=== PATIENT | male | born 1960 | race Caucasian/White ===

== ENCOUNTER 2020-12-25 10:10 | Inpatient (IN) | payer OTHER, SELFPAY ==
[2020-12-25] VITALS (56 sets, daily range): BP systolic 129–174; BP diastolic 88–120; PULSE 76–130; RESP 12–25; O2SAT 90–95
--- NOTE | 2020-12-25 10:12 | XACV_ITS ---
Ht: 180 cm Wt: 96 kg BSA: 2.22 m2 Gender: Male : 1960 Any Known Allergies: No known allergies Exam Priority: Routine Procedure(s): Procedure Description: Diagnostic procedure Procedure Description: PCI procedure Procedure Description: Drug Eluting Coronary Stent Procedure Description: PTCA Procedure Description: Miscellaneous Procedure Description: ACT Procedure Description: Coronary Angiography Diagnostic Cath Status: Urgent Diagnostic Findings * LM has 0% stenosis. * Mid Left Anterior Descending Coronary Artery: Severe 90% stenosis, FREDA: 3 flow. * Proximal Circumflex Coronary Artery: Severe 80% stenosis, FREDA: 0 flow. * Mid Circumflex Coronary Artery: Severe 90% stenosis, FREDA: 3 flow. * mRCA: Moderate 50% stenosis, FREDA: 3 flow. * dRCA to RPAV: Moderate 50% stenosis, FREDA: 3 flow. * Coronary angiography shows right dominance. PCI Status: Urgent PCI Indication: STEMI - Immediate PCI for STEMI Interventional Findings * Mid Left Anterior Descending Coronary Artery: 90% stenosis treated with AB MINI TREK 2.00X12 RX BALLOON, RUFINA Lopez LIZANDRO 3.0X26 APRIL, and RUFINA ANGELES EUPHORA RX 3.20H95GB BALLOON. 0% residual stenosis, FREDA: 3 flow. * Proximal Circumflex Coronary Artery: 80% stenosis treated with MDT R LIZANDRO 3.0X15 APRIL. 0% residual stenosis, FREDA: 3 flow. * Mid Circumflex Coronary Artery: 90% stenosis treated with AB TREK 2.50X12 RX BALLOON and MDT R LIZANDRO 3.0X12 APRIL. 0% residual stenosis, FREDA: 3 flow. Conclusions 1. There is severe coronary artery disease with three vessel disease. 2. Mid Left Anterior Descending Coronary Artery was treated with two Balloon and Drug Eluting Stent. 3. Proximal Circumflex Coronary Artery was treated with Drug Eluting Stent. 4. Mid Circumflex Coronary Artery was treated with Balloon and Drug Eluting Stent. Recommendations * 1-Return to inpatient for close monitoring and routine cath care 2-Risk factor modification for secondary prevention 3-Statin with LDL goal <70 mg/dl, aspirin 81 mg life-long 4-Patient was pre-loaded with 180mg of Brillinta. Continue Brillinta 90mg p.o. twice daily for at least one year. We will assess at the end of one year again to continue it further or not 5-Continue optimal medical management 6-Follow up with Dr. Grubbs in four weeks and with your PCP in one week. Diagnostic RX Recommendation: PCI w/o planned CABG Pressures Phase:Rest AO : / ( -15 ) @ 4:21:00 AM 169 / 106 ( 138 ) @ 4:48:00 AM 71 / 54 ( 55 ) @ 4:49:00 AM 137 / 9 ( 78 ) @ 4:54:00 AM -3 / -6 ( -5 ) @ 5:15:00 AM Clinical Evaluation EBL: 5mL-10mL Procedural Details Procedure Consent Obtained. Current Diagnosis : STEMI. Identified patient by full name and date of as verbalized by the patient/guarantor. Pre-Procedure Time Out. Does the consent match the physician's order: N/A Emergent; Informed Consent not obtained due to time critical life threat. Accurate & Complete Informed Consent: N/A Emergent; Informed Consent not obtained due to time critical life threat. Inpatient/Outpatient History & Physical on Chart: N/A Emergent; Informed Consent not obtained due to time critical life threat. If H&P is completed, is and addenduem needed: N/A Emergent; Informed Consent not obtained due to time critical life threat; If yes, is the addendum complete: N/A Emergent; Informed Consent not obtained due to time critical life threat. Visualize and Verify Site with Patient/Guarantor: N/A. Relevant Radiology Images available: N/A Emergent; Informed Consent not obtained due to time critical life threat. Pre-op teaching completed and patient verbalized understanding. The risks, benefits, and alternatives of sedation and/or procedure were discussed by physician. The patient agrees to continue. Procedure started. Correct patient, site and procedure confirmed by cath team. Current diagnosis: STEMI. PERRLA. Strong, equal hand social security specialist bilaterally. Lungs clear x 5 lobes. IV Site on Arrival: 18 gauge in the left anticubital. IV Fluids: 0.9% NaCl at KVO. 0 mL infused prior to veterinary laboratory diagnostician. Pre Procedural Pulses: bilateral dorsalis pedis was 3+. Pre Procedural Pulses: bilateral posterior tibial was 3+. Pre Procedural Pulses: bilateral radial was 3+. Oxygen started at 2liters/min via nasal canula. bilateral groins was prepped with chloroprep then draped in the usual sterile fashion. Physician notified. right radial was prepped with chloroprep then draped in the usual sterile fashion. Physician arrived. Equipment: 6F - Radial. ACIST Manifold Kit Model BT 2000. Cardiac Cath Pack. Heparinized Saline (2 units/mL), 1000 mL bag. Baseline sample Acquired. HR: 102 BPM. Physician scrubbed in. Immediate Pre-Procedure Time Out. Correct Patient: Yes; Correct Procedure: Yes; Correct Site: Yes; Correct Patient Position: Yes; Correct Supplies: Yes; Dried Flammable Prep: Yes; Blood Products Available: No;. Lidocaine 1% infiltrated to the right radial. Arterial access obtained. 6 emirati XB 3.5 guide catheter was inserted over the wire. Glidewire inserted. Guide catheter out. A 5 emirati JR4 catheter in over exchange wire. Multiple views taken of right coronary artery. Catheter removed over the exchange wire. 6 emirati XB 3.5 guide catheter was inserted over the wire. Difficulty gaining access leading to delay. Will gain access in the groin. Lidocaine 1% infiltrated to the right groin. Arterial access obtained with micropuncture set. [place] wire inserted to the Mid LAD. Inflation number : 1 A AB MINI TREK 2.00X12 RX BALLOON was prepped and advanced across the Mid LAD , then inflated to 18 JAXON for 0:20 seconds. Patient placed on oxymask at 7lpm. Inflation number: 2 The AB MINI TREK 2.00X12 RX BALLOON was reinflated across the Mid LAD, to 16 JAXON for 0:19 seconds. Balloon out. Oxygen increased to 10lpm. O2 sat drawn, reading 96%. 3.0mm x 22mm stent inserted but removed intact and undeployed. ACT drawn. Results 308 seconds. Therapeutic limits - pre-heparin administration 90-150 seconds and monitoring heparin during a vascular procedure >250 seconds. Inflation Number : 3 A MDT R LIZANDRO 3.0X26 APRIL -Lot Number# [id number] was prepped and advanced across the Mid LAD. The stent was deployed at 12 JAXON for 0:33 seconds. Stent expiration date: 07/17/2022. Stent balloon out. Inflation number : 4 A MDT NC EUPHORA RX 3.93S09LV BALLOON was prepped and advanced across the Mid LAD , then inflated to 16 JAXON for 0:21 seconds. Inflation number: 5 The MDT NC EUPHORA RX 3.24L50UI BALLOON was reinflated across the Mid LAD, to 18 JAXON for 0:24 seconds. Inflation number: 6 The MDT NC EUPHORA RX 3.73S99VL BALLOON was reinflated across the Mid LAD, to 20 JAXON for 0:22 seconds. Balloon out. [place] wire redirected to the Circumflex. Inflation number : 1 A AB TREK 2.50X12 RX BALLOON was prepped and advanced across the Mid CX , then inflated to 12 JAXON for 0:10 seconds. Balloon out. Inflation Number : 2 A MDT R LIZANDRO 3.0X12 APRIL -Lot Number# [id number] was prepped and advanced across the Mid CX. The stent was deployed at 10 JAXON for 0:39 seconds. stent expiration date: 07/03/2022. Inflation Number : 1 A MDT R LIZANDRO 3.0X15 APRIL -Lot Number# [id number] was prepped and advanced across the Prox CX. The stent was deployed at 16 JAXON for 0:31 seconds. Stent expiration date: 08/26/2022. ACT drawn. Results 201 seconds. Therapeutic limits - pre-heparin administration 90-150 seconds and monitoring heparin during a vascular procedure >250 seconds. Vital chart was stopped. A TR Band was successful obtaining hemostatsis at the Right Radial artery insertion site. A Suture was successful obtaining hemostatsis at the Right Femoral artery insertion site. Post Procedure: Pulses reassessed and unchanged. PERRLA. Strong, equal hand social security specialist bilaterally. No VTE prophylaxis required. Medication's Wasted: Lidocaine 1% = 10 mL. Medication's Wasted: Nitro = 49.8 mg. Medication's Wasted: Other = Fentanyl 50mcg. Medication's Wasted: Other = Versed 1 mg. Total IV fluids: 75 mL. Contrast type used: Omnipaque 300 mgI/mL, 500 mL bottle. PCI Indication: STEMI. Post-op diagnosis: STEMI. Complications: None. Estimated blood loss: 5mL-10mL. Procedure completed. Patient transferred by bed to ICU. Access Site Site: Right Radial artery Sheath Size: 6 Fr Hemostasis Method: TR Band Hemostasis Success: Successful Site: Right Femoral artery Sheath Size: 6 Fr Hemostasis Method: Suture Hemostasis Success: Successful Procedure Medications Start: 10:18 AM Stop: 10:18 AM Medication: Versed Amount: 1 mg Route: I.V. Start: 10:18 AM Stop: 10:18 AM Medication: Fentanyl Amount: 50 mcg Route: I.V. Start: 10:23 AM Stop: 10:23 AM Medication: Heparin Amount: 7000 units Route: I.V. Start: 10:23 AM Stop: 10:23 AM Medication: Nitrogylcerin Amount: 200 mcg Route: I.A. Start: 10:26 AM Stop: 10:26 AM Medication: Fentanyl Amount: 50 mcg Route: I.V. Start: 10:32 AM Stop: 10:32 AM Medication: Lopressor (metoprolol) Amount: 5 mg Route: I.V. Start: 10:34 AM Stop: 10:34 AM Medication: Versed Amount: 1 mg Route: I.V. Start: 10:35 AM Stop: 10:35 AM Medication: Aggrastat 12.5 mg/250 mL Amount: 48 ml Route: I.V. bolus Start: 10:35 AM Stop: 10:35 AM Medication: Aggrastat 12.5 mg/250 mL Amount: 17.3 ml/hr Route: I.V. drip Start: 10:52 AM Stop: 10:52 AM Medication: Heparin Amount: 3000 units Route: I.V. Start: 11:21 AM Stop: 11:21 AM Medication: Brilinta Amount: 180 mg Route: P.O. Start: 11:21 AM Stop: 11:21 AM Medication: Heparin Amount: 3000 units Route: I.V. I, the attending physician, have reviewed and verified all procedure medications. Yes, all medications given per verbal order History/Risk Factors Hypertension: No Dyslipidemia: No Peripheral Arterial Disease (PAD): No Myocardial Infarction (SC): No Obesity: No Renal Disease: No Prior Interventions PCI: No CABG: No Valve Surgery: No Report Signatures Finalized by Baljit Grubbs MD on 01/03/2021 04:56 PM
--- NOTE | 2020-12-25 10:12 | PC.NURSE ---
Pt bypassed ED and went directly to Regional Merchandising Manager
--- NOTE | 2020-12-25 11:32 | P.HP_ITS ---
Providers/Chief Complaint Primary Care Provider: Rush Lynn Chief Complaint: STEMI ALERT History of Present Illness Oc Mondragon is a 60 year old male past medical history significant for tobacco use hypertension hyperlipidemia brought in by EMS with ST elevation IA which was alerted from the field. Patient was immediately taken to the District Loss Prevention Manager. Right radial access was adopted due to tortuosity of the vessels we crossed over to groin approach. Patient was noted to have 100% occluded mid LAD which was treated with drug-eluting stent postdilated with noncompliant balloon. Circumflex was also noted to have mid 90% and proximal 80% stenosis both were treated with 2 separate drug-eluting stents posted at high JAXON. RCA had luminal irregularities. Patient patient was later transferred to ICU in relatively stable but hypertensive state for which he was started on nitroglycerin drip. According to the patient for the last week he was hurting off and on in the left side chest and arm. He was experiencing chest pain while shoveling the snow otherwise he denies any major complaint. This morning when pain became more p ersistent and intense patient called 911. Medications/Allergies Home Medications Medication Instructions Recorded Confirmed Last Taken Type No Known Home Medications 02/14/20 12/26/20 Unknown History Allergies Allergy/AdvReac Type Severity Reaction Status Date / Time No Known Allergies Allergy Unverified 02/14/20 10:02 PFSH Acute PFSH: Medical History (Updated 12/26/20 @ 22:56 by Baljit Grubbs MD) Essential hypertension Hyperlipidemia associated with type 2 diabetes mellitus Social History (Updated 02/14/20 @ 10:03 by Viki Barajas LPN) Smoking and tobacco status: never smoked Alcohol intake: current Alcohol intake frequency: holidays/special occasions only Physical Exam Narrative: EXAM NARRATIVE: GENERAL: Patient is alert, awake and oriented x3. Moderate pain NECK: No jugular vein distension. HEENT: No cyanosis. No icterus. No pallor. HEART: Regular S1 and S2. No murmur, rub or gallop. LUNGS: Clear to auscultate bilaterally. ABDOMEN: Soft, nontender and nondistended. Positive bowel sounds. No guarding, rebound or tenderness. CENTRAL NERVOUS SYSTEM: Grossly nonfocal. EXTREMITIES: Lower extremities without edema bilaterally. Data : 12/25/20 09:21 12/25/20 09:21 A&P Assessment and plan (1) ST elevation IA (STEMI): As above patient had culprit LAD lesion which is occluded in the midsegment treated with balloon angioplasty followed by single drug-eluting stent. Circumflex in the proximal and mid segment was also treated with 2 drug- eluting stent. Patient tolerated procedure well and transferred to the District Loss Prevention Manager. Continue aspirin statin add beta-katiuska and RANDAL inhibitor for next 24 hours. Continue patient is loaded with Brilinta continue Aggrastat for 1-1/2hrs Status: Acute Qualifiers: Involved coronary artery: LAD coronary artery Qualified Code(s): I21.02 - ST elevation (STEMI) myocardial infarction involving left anterior descending coronary artery (2) Essential hypertension: Blood pressure is elevated will continue IV nitroglycerin until we will transition patient to p.o. meds Status: Acute (3) Hyperlipidemia associated with type 2 diabetes mellitus: I will check lipids, add statin. Status: Acute Attestations Medical Necessity Statement*: I am expecting his stay to cross more than 2 midnights Coding Level of Care Code New Pt Acute Industrial Illuminating Engineer for Paula Freeman Patient Type New History Detailed Exam Detailed Medical Decision Making Moderate Complexity Diagnoses ST elevation IA (STEMI) I21.02 Involved coronary artery: LAD coronary artery Essential hypertension I10 Hyperlipidemia associated with type 2 diabetes mellitus E11.69; E78.5
[2020-12-25] MEDS: nitroglycerin drip 50 MG/250 ML PREMIX IV (11:58)
--- NOTE | 2020-12-25 12:16 | USCV_ITS ---
Oc Mondragon Age: 60 Gender: M : 1960 Exam Date: 12/25/2020 13:52 Ordering Phys: Baljit Grubbs MD ([email or web address]) Technologist: Mayank Cid Exam Location: [facility] [place] Indication: POST CATH BP: / HR: 92 Rhythm: Sinus Technical Quality: Fair MEASUREMENTS (Male / Female) Normal Values 2D ECHO LV Diastolic Diameter PLAX 4.6 cm 4.2 - 5.9 / 3.9 - 5.3 cm LV Systolic Diameter PLAX 3.3 cm IVS Diastolic Thickness 1.2 cm 0.6 - 1.0 / 0.6 - 0.9 cm IVS Systolic Thickness 1.5 cm LVPW Diastolic Thickness 1.0 cm 0.6 - 1.0 / 0.6 - 0.9 cm LVPW Systolic Thickness 1.4 cm LVOT Diameter 2.0 cm LV Ejection Fraction 2D Teich 55.4 % LA Diameter 3.3 cm LA Width 4.2 cm LA Height 4.4 cm RA Width 3.2 cm RA Height 4.2 cm M-MODE LV Diastolic Diameter MM 5.7 cm 4.2 - 5.9 / 3.9 - 5.3 cm LV Systolic Diameter MM 5.0 cm LV Ejection Fraction MM Teich 27.3 % IVS Diastolic Thickness MM 0.8 cm 0.6 - 1.0 / 0.6 - 0.9 cm IVS Systolic Thickness MM 1.0 cm LVPW Diastolic Thickness MM 1.4 cm 0.6 - 1.0 / 0.6 - 0.9 cm LVPW Systolic Thickness MM 1.8 cm RV Diastolic Diameter MM 1.0 cm Aortic Annulus Diameter 3.3 cm LA Ao Ratio MM 1.1 MV E Point Septal Separation 0.7 cm DOPPLER AV Peak Velocity 89.0 cm/s LVOT Peak Velocity 72.0 cm/s AV Area Cont Eq vti 3.3 cm squared AV Area Cont Eq pk 2.5 cm squared MV Area PHT 5.0 cm squared Mitral E to A Ratio 1.4 MV E' Velocity 65.0 cm/s Mitral E to MV E' Ratio 12.4 Mitral E to LV E' Lateral Ratio 14.5 Mitral E to LV E' Septal Ratio 10.9 TR Peak Velocity 130.0 cm/s TR Peak Gradient 6.8 mmHg FINDINGS Left Ventricle Normal left ventricular size. LV systolic function is severely reduced with LVEF of 25-30%. Apical wall is akinetic, severe hypokinesis of the apical anterior, anterolateral and apical inferoseptal joya. There is apical thickening. Can not rule out LV thrombus. Diastolic function is abnormal Right Ventricle The right ventricle is normal in size and function. Right Atrium The right atrium is normal in size. Left Atrium The left atrium is normal in size. Mitral Valve Structurally normal mitral valve without significant stenosis or prolapse. There is no mitral regurgitation. Aortic Valve Not well visualized. No significant sclerosis or stenosis. There is no aortic regurgitation. Tricuspid Valve Grossly normal without significant stenosis or regurgitation. Insufficient TR jet to calculate RVSP Pulmonic Valve Not well visualized. Pericardium Normal pericardium without effusion. Aorta Normal ascending aorta dimension. CONCLUSIONS Limited quality echocardiogram. Poor visualization of cardiac structures. LV systolic function is severely reduced with EF of 25-30% with above mentioned regional wall motion abnormalities. LV thrombus can not be ruled out. Repeat echo with contrast to rule out LV thrombus Valves are not well visualized. No gross abnormalities No comparison studies are available Bjorn Sorto MD (Electronically Signed) Final Date: 29 December 2020 18:13 S
--- NOTE | 2020-12-25 12:47 | PC.NURSE ---
Patient arrived to ICU from mill labor supervisor at appx 1145 - TR band right radial with 17 ml air. No hematoma noted. Radial pulse palpated without difficulty. Sheath in place to right groin, no hematoma noted. Aggrestat infusing at 17.3 ml/h. Patient stable at time of transfer.
[2020-12-25] MEDS: metoprolol succinate ER (24 HR) 25 mg Tablet 12.5 MG PO (14:46)
[2020-12-25 15:22] LABS: Anion Gap 16.8 (5-19); Blood Urea Nitrogen 15 mg/dL (8-23); Carbon Dioxide 25 mmol/L (22-29); Chloride 100 mmol/L (98-107); Glomerular Filtration Rate 98.6 mL/min (90-130); Glucose 111 mg/dL (65-115); Osmolality Calculated 288 mOsm/kg (285-295); Potassium 3.8 mmol/L (3.5-5.1); Sodium 138 mmol/L (136-145)
[2020-12-25 15:27] LABS: Basophils # 0.1 10^3/uL (0.0-0.1); Basophils % 0.9 %; Eosinophils # 0.3 10^3/uL (0.0-0.8); Eosinophils % 1.8 %; Hematocrit 50.1 % (42.0-52.0); Lymphocytes # 8.3 10^3/uL (0.8-4.8); Mean Corpuscular HGB Conc 33.9 g/dL (30.0-36.0); Mean Corpuscular Hemoglobin 30.8 pg (28.0-34.0); Mean Corpuscular Volume 90.8 fL (80-94); Mean Platelet Volume 11.3 fL (7.4-10.4); Monocytes # 1.3 10^3/uL (0.2-0.9); Monocytes % 8.4 %; Neutrophils # 5.25 10^3/uL (1.8-7.7); Neutrophils % 34.4 %; Nucleated Red Blood Cells % 0 %; Platelet Count 281 10^3/cmm (130-400); Red Blood Count 5.52 10^6/uL (4.1-5.3); Red Cell Distribution Width 12.7 % (12.1-15.1); White Blood Count 15.3 10^3/uL (4.0-10.0)
[2020-12-25 16:03] LABS: Partial Thromboplastin Time 38.5 SECONDS (23.9-36.7)
[2020-12-25] MEDS: fentaNYL 50 mcg/mL INJ 2mL IVP (16:21)
[2020-12-25 16:29] LABS: Slide Review Slide Review Perform
[2020-12-25] MEDS: ondansetron 2 mg/ML SDV 2 mL 4 MG IVP (17:43)
[2020-12-25] MEDS: lisinopril 5 mg Tablet PO (18:12)
[2020-12-25] MEDS: metoprolol tartrate 25 mg Tablet PO (18:13)
[2020-12-25] MEDS: ticagrelor 90 mg Tablet PO (18:13)
--- NOTE | 2020-12-25 20:56 | PC.NURSE ---
AO x4, C/O nausea with emesis after eating jello, nausea went away immediately after emesis, no C/O pain at this time, Dressing to R groin and R wrist clean dry and intact, supine 30 degrees call light within reach
[2020-12-26] VITALS (27 sets, daily range): BP systolic 77–141; BP diastolic 51–94; PULSE 78–116; RESP 13–24; TEMP 36.4–37.1; O2SAT 90–96
[2020-12-26] MEDS: enoxaparin 120 mg/0.8 mL Syringe SUBCUT (00:30)
--- NOTE | 2020-12-26 01:59 | PC.NURSE ---
TR band removed, site clean dry and intact
--- NOTE | 2020-12-26 05:57 | PC.NURSE ---
Uneventful night, no complaints through shift, site to R groin and R wrist remains clean dry and intact
[2020-12-26] MEDS: lisinopril 5 mg Tablet PO (08:13)
[2020-12-26] MEDS: pantoprazole DR 40 mg Tablet PO (08:13)
[2020-12-26] MEDS: metoprolol succinate ER (24 HR) 25 mg Tablet 12.5 MG PO (08:13)
[2020-12-26] MEDS: ticagrelor 90 mg Tablet PO ×2 (08:13→17:06)
--- NOTE | 2020-12-26 10:19 | PC.CHAP ---
Pastoral Care Encounter/Spiritual Assessment Type of Contact [] Declined card reader visit [] Patient/Family/Request visit [] Outpatient visit [] Follow-up visit [] Physician referral [] Code/Alert [x] Routine visit [] Staff referral [] Actively dying [] Patient sleeping [] Family support [] [] Out of room [] Palliative care [] [] Receiving care in room [] Pre-surgical visit [] Trauma [] Long length of stay [x] ICU visit [] Other: Relational/Emotional Strength [] Patient feels connected with others/family/visitors/staff [] Distress [] Loneliness/isolation [] Abandonment Spirituality of Patient [x] Person of Elizabet [] Attends Zoroastrianism of their Elizabet [] Believes in Prayer [] Reads Bible or Orthodoxy materials [] There are Spiritual issues to be addressed Plant Wire Chief Interventions [x] Prayer [x] Active listening [x] Non-anxious presence [x] Spiritual/emotional support [] Crisis/trauma care [] Spiritual counseling [] Bereavement support [] Provided bereavement packet [] Provided Bible/devotional materials [] Provided toy/stuffed animal, coloring book to patient or family member [] Provided Communion [] Anointing/[place] [] Salvation [x] Completed spiritual assessment [] Other: Impact on Illness or Injury [] Angry [] Fearful [] Anxious [] Often cries [] Exhaustion [] Unable to work [] Unable to attend yarsanism [] Unable to walk/stand [] Unable to read [] Unable to drive [] Unable to eat/drink [] Unable to sleep [] Unable to be with family [] Patient intubated [] Other: Summary feeling better... Time spent with patient 15 min
[2020-12-26 19:37] LABS: Chol HDL Ratio 5.53 mg/dL (1.0-5.00); Cholesterol 210 mg/dL (0-200); HDL Cholesterol 38 mg/dL (60-100); LDL Cholesterol Calculated 127 mg/dL (50-129); LDL HDL Ratio 3.34 RATIO (0.00-3.22); Triglycerides 225 mg/dL (0-150)
[2020-12-26 19:44] LABS: Troponin T (5th) Once 7473 ng/L (0-15)
[2020-12-26] MEDS: atorvastatin 40 mg Tablet 80 MG PO (20:17)
--- NOTE | 2020-12-26 22:03 | PM.PN ---
Subjective Subjective: Interval history: Feeling much better. Had short burst of ventricle 4-5 beat run of tachycardia. Blood pressure is on the lower side after adding medicine. Vitals/I&O/Wt Last Vital Signs Temp 98.8 F 12/26/20 08:00 Pulse 88 12/26/20 20:38 Resp 15 12/26/20 18:00 BP 77/52 12/26/20 18:00 Pulse Ox 94 12/26/20 20:38 12/26/20 12/26/20 12/26/20 06:59 14:59 22:59 Intake Total 730.250 / 730.250 500 / 1230.250 Output Total 525 / 875 500 / 500 Balance -525 / -869.7 730.250 / 730.250 0 / 730.250 Weight last 48 hrs Weight 222 lb Physical Exam Narrative: EXAM NARRATIVE: GENERAL: Patient is alert, awake and oriented x3. Appears well NECK: No jugular vein distension. HEENT: No cyanosis. No icterus. No pallor. HEART: Regular S1 and S2. No murmur, rub or gallop. LUNGS: Clear to auscultate bilaterally. ABDOMEN: Soft, nontender and nondistended. Positive bowel sounds. No guarding, rebound or tenderness. CENTRAL NERVOUS SYSTEM: Grossly nonfocal. EXTREMITIES: Lower extremities without edema bilaterally. Data : 12/25/20 09:21 12/25/20 09:21 A&P Assessment and plan (1) ST elevation ME (STEMI): Status post PCI to LAD and circumflex. Echocardiogram ordered to check LV function. Optimize medicine. I have detailed discussion with the patient regarding lifestyle modification and quitting smoking he smokes cigars. Status: Acute Qualifiers: Involved coronary artery: LAD coronary artery Qualified Code(s): I21.02 - ST elevation (STEMI) myocardial infarction involving left anterior descending coronary artery (2) Essential hypertension: Blood pressure on the lower side will titrate medicine for that Status: Acute (3) Hyperlipidemia associated with type 2 diabetes mellitus: I will check lipids, add statin. Status: Acute (4) Tobacco abuse: Advised to quit patient says that he has already decided to quit. He smokes cigars Status: Acute Attestations Medical Necessity Statement*: Patient require continuation hospitalization for above defined care. Coding Level of Care Code Established Pt Acute [employer] Engineer for Chg Fwd Patient Type Established History Detailed Exam Detailed Medical Decision Making Moderate Complexity Diagnoses ST elevation ME (STEMI) I21.02 Involved coronary artery: LAD coronary artery Essential hypertension I10 Hyperlipidemia associated with type 2 diabetes mellitus E11.69; E78.5 Tobacco abuse Z72.0
[2020-12-27] VITALS (13 sets, daily range): BP systolic 77–131; BP diastolic 52–76; PULSE 80–94; RESP 12–21; TEMP 36.9–37.1; O2SAT 89–97
[2020-12-27] MEDS: lisinopril 5 mg Tablet PO (08:57)
[2020-12-27] MEDS: pantoprazole DR 40 mg Tablet PO (08:58)
[2020-12-27] MEDS: metoprolol succinate ER (24 HR) 25 mg Tablet 12.5 MG PO (08:59)
[2020-12-27] MEDS: ticagrelor 90 mg Tablet PO (09:00)
[2020-12-27 10:13] LABS: Anion Gap 11.8 (5-19); Blood Urea Nitrogen 24 mg/dL (8-23); Calcium 8.5 mg/dL (8.5-10.5); Carbon Dioxide 26 mmol/L (22-29); Chloride 100 mmol/L (98-107); Glomerular Filtration Rate 76.2 mL/min (90-130); Glucose 128 mg/dL (65-115); Osmolality Calculated 284 mOsm/kg (285-295); Potassium 3.8 mmol/L (3.5-5.1); Sodium 134 mmol/L (136-145)
[2020-12-27] MEDS: perflutren protein-a microsphr 0.22 mg/mL SDV 3 mL IV (10:29)
[2020-12-27 10:58] LABS: Troponin T (5th) Once 4249 ng/L (0-15)
--- NOTE | 2020-12-27 13:04 | PM.DCS ---
Discharge Providers Date of Admission: 12/25/20 11:30 Date of Discharge: December 27, 2020 Attending Provider at Admission: Baljit Grubbs MD Attending Provider at Discharge: Baljit Grubbs MD Primary Care Provider: Rush Lynn Diagnoses at Discharge Discharge Diagnosis (1) ST elevation PR (STEMI): Qualifiers: Involved coronary artery: LAD coronary artery Qualified Code(s): I21.02 - ST elevation (STEMI) myocardial infarction involving left anterior descending coronary artery (2) Essential hypertension: Status: Acute (3) Hyperlipidemia associated with type 2 diabetes mellitus: Status: Acute (4) Tobacco abuse: Status: Acute Reason for Visit Reason for Visit: STEMI ALERT Brief History: 60 year old male past medical history significant for tobacco use hypertension hyperlipidemia brought in by EMS with ST elevation PR which was alerted from the field. Patient was immediately taken to the [facility] [employer]. Right radial access was adopted due to tortuosity of the vessels we crossed over to groin approach. Patient was noted to have 100% occluded mid LAD which was treated with drug-eluting stent postdilated with noncompliant balloon. Circumflex was also noted to have mid 90% and proximal 80% stenosis both were treated with 2 separate drug-eluting stents posted at high JAXON. RCA had luminal irregularities. Hospital Course Hospital Course 60 year old male past medical history significant for tobacco use hypertension hyperlipidemia brought in by EMS with ST elevation PR which was alerted from the field. Patient was immediately taken to the [facility]. Right radial access was adopted due to tortuosity of the vessels we crossed over to groin approach. Patient was noted to have 100% occluded mid LAD which was treated with drug-eluting stent postdilated with noncompliant balloon. Circumflex was also noted to have mid 90% and proximal 80% stenosis both were treated with 2 separate drug-eluting stents posted at high JAXON. RCA had luminal irregularities. Patient patient was later transferred to ICU in relatively stable but hypertensive state for which he was started on nitroglycerin drip. According to the patient for the last week he was hurting off and on in the left side chest and arm. He was experiencing chest pain while shoveling the snow otherwise he denies any major complaint. Patient's echo revealed severely reduced LV systolic function. Repeat limited echocardiogram was performed with contrast to rule out LV thrombus. There was no LV thrombus and LV systolic function was 30 to 35%. Patient was initially started on Brilinta however on the day of discharge he wanted to switch to Plavix as he said Brilinta is too expensive for him to use. Plavix was reloaded and was prescribed as the second antiplatelet agent in addition to aspirin. Given his low LV systolic function, we recommended LifeVest however patient did not want to go home with a LifeVest. Patient was discharged in a stable condition. Physical Exam Narrative: EXAM NARRATIVE: GENERAL: Patient is alert, awake and oriented x3. Appears well NECK: No jugular vein distension. HEENT: No cyanosis. No icterus. No pallor. HEART: Regular S1 and S2. No murmur, rub or gallop. LUNGS: Clear to auscultate bilaterally. ABDOMEN: Soft, nontender and nondistended. Positive bowel sounds. No guarding, rebound or tenderness. CENTRAL NERVOUS SYSTEM: Grossly nonfocal. EXTREMITIES: Lower extremities without edema bilaterally. Discharge Data Data Completed and Pending: Completed Studies During Hospitalization Category Date Time Status CV echo lmt wo/w contras [id number] Rout ine Ultrasound 12/27/20 23:30 Completed Pending at discharge Category Date Time Status [employer] request for service Stat Exams 12/25/20 10:12 Taken CV echo complete* [id number] Routine Ultrasound 12/25/20 12:16 Taken US/CV paperwork R outine Ultrasound 12/27/20 Taken Labs from last 24 hours 12/27/20 12/27/20 12/26/20 09:02 09:02 18:57 Sodium 134 L Potassium 3.8 Chloride 100 Carbon Dioxide 26 Anion Gap 11.8 BUN 24 H Creatinine 1.0 GFR Calculation 76.2 L Glucose 128 H Calculated Osmolal ity 284 L Calcium 8.5 Troponin T Gen 5 n g/L 4249 H* Triglycerides 225 H Cholesterol 210 H LDL Cholesterol, C alc 127 HDL Cholesterol 38 L LDL/HDL Ratio 3.34 H Cholesterol/HDL Ra cole 5.53 H 12/26/20 18:57 Sodium Potassium Chloride Carbon Dioxide Anion Gap BUN Creatinine GFR Calculation Glucose Calculated Osmolal ity Calcium Troponin T Gen 5 n g/L 7473 H* Triglycerides Cholesterol LDL Cholesterol, C alc HDL Cholesterol LDL/HDL Ratio Cholesterol/HDL Ra cole Vitals: Last Vital Signs Temp 98.7 F 12/27/20 10:00 Pulse 89 12/27/20 12:00 Resp 19 H 12/27/20 12:00 BP 116/76 12/27/20 12:00 Pulse Ox 95 12/27/20 12:00 Discharge Plan Discharge Patient Disposition: Home Condition: Stable Prescriptions: New aspirin 81 mg Tablet,Delayed Release (Dr/Ec) 81 mg PO DAILY Qty: 90 RF: 3 atorvastatin 40 mg Tablet 80 mg PO BEDTIME Qty: 90 RF: 3 lisinopril 5 mg Tablet 5 mg PO DAILY Qty: 90 RF: 3 metoprolol succinate 25 mg Tablet Extended Release 24 Hr 12.5 mg PO DAILY Qty: 90 RF: 3 Plavix 75 mg tablet 75 mg PO DAILY Qty: 90 RF: 3 Discharge Orders: Discharge Order (Routine); Ordered 12/27/20 Ordered By: Bjorn Sorto Referrals: Baljit Grubbs MD [Emergency Provider] - 1 month Beba Farfan FNP [Nurse Practitioner] - 7-10 days Discharge Diet: Cardiac Discharge Activity: Increase activity as tolerated and Return to work/school after cleared by PCP/Specialist Patient Instructions: Myocardial Infarction (DC), Left Heart Catheterization (DC), Right Heart Catheterization (DC), Coronary Angioplasty (DC), Coronary Intravascular Stent Placement (DC), Post Angiogram Home Care Instructions Activity Restrictions/Additional Instructions: Please do not lift more than 5 pounds of weight for the next 5 days. Return to work in 2 weeks (involves physically demanding work). Please call Tuesday to schedule follow up appointments. Dr. 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
[2020-12-27] MEDS: aspirin 81 mg EC Tablet PO (14:15)
[2020-12-27] MEDS: clopidogrel 300 mg Tablet 600 MG PO (14:16)
--- NOTE | 2020-12-27 23:30 | USCV_ITS ---
Oc Mondragon Age: 60 Gender: M : 1960 Exam Date: 12/27/2020 09:54 Ordering Phys: Baljit Grubbs MD ([email or web address]) Technologist: Sarahi Orosco [place] [facility] [place]: LV THROMBUS BP: 126 / 77 HR: 91 Rhythm: Sinus Technical Quality: Adequate MEASUREMENTS (Male / Female) Normal Values 2D ECHO LV Ejection Fraction MOD 2C 48.8 % LV Ejection Fraction 2C AL 48.9 % FINDINGS Left Ventricle Right Ventricle Right Atrium Left Atrium Mitral Valve Aortic Valve Tricuspid Valve Pulmonic Valve Pericardium Aorta CONCLUSIONS This is a limited echocardiogram performed with contrast to rule out LV thrombus. There is no LV thrombus seen LV systolic function is severely reduced with EF of 30-35% There is severe hypokinesis of anterior, anterolateral, anterospetal, inferoseptal and apical joya. Bjorn Sorto MD (Electronically Signed) Final Date: 27 December 2020 12:01 S
== END 2020-12-27 14:50 | disposition home or self-care (01) | DRG 247 ==
LOC: ER 10:15 → CCL 10:20 → ICU 11:42
PROVIDERS: Admitting Provider Internal Medicine Cardiovascular Disease; Emergency Provider Internal Medicine Cardiovascular Disease; PCP Nurse Practitioner Family; Visit Provider Internal Medicine Cardiovascular Disease
PROC: 027136Z Dilation of Coronary Artery, Two Arteries with Three Drug-eluting Intraluminal Devices, Percutaneous Approach (ICD-10-PCS; principal; 2020-12-25 10:00)
PROC: 027136Z Dilation of Coronary Artery, Two Arteries with Three Drug-eluting Intraluminal Devices, Percutaneous Approach (ICD-10-PCS; 2020-12-25 10:00)
DX: I21.02 ST elevation (STEMI) myocardial infarction involving left anterior descending coronary artery (principal); F17.210 Nicotine dependence, cigarettes, uncomplicated; I10 Essential (primary) hypertension; E78.5 Hyperlipidemia, unspecified; E11.9 Type 2 diabetes mellitus without complications
CPT/HCPCS: 36415; 80048; 80061; 84484; 85025; 85347; 85730; 93306; 93454; 96372; C1725; C1769; C1874; C1887; C1894; C8924; C9601; C9606; J1644; J1650; J2250; J2405; J3010; J3246; J3490; J7030; Q9956; Q9967

== ENCOUNTER → 2020-12-31 15:26 | Outpatient (BNVA) | payer OTHER, SELFPAY | PROVIDERS: PCP Nurse Practitioner Family; Visit Provider Nurse Practitioner Family | DX: I21.02 ST elevation (STEMI) myocardial infarction involving left anterior descending coronary artery (principal); I50.20 Unspecified systolic (congestive) heart failure; I25.10 Atherosclerotic heart disease of native coronary artery without angina pectoris; I50.21 Acute systolic (congestive) heart failure; I25.119 Atherosclerotic heart disease of native coronary artery with unspecified angina pectoris | CPT/HCPCS: 80048 ==

== ENCOUNTER → 2024-09-03 16:23 | Outpatient (BNVA) | payer MEDICAID, SELFPAY | PROVIDERS: Family Provider Nurse Practitioner Family; PCP Nurse Practitioner Family; Visit Provider Internal Medicine Cardiovascular Disease | DX: I21.09 ST elevation (STEMI) myocardial infarction involving other coronary artery of anterior wall (principal); I49.8 Other specified cardiac arrhythmias; R07.9 Chest pain, unspecified | CPT/HCPCS: 93005 ==

== ENCOUNTER 2024-10-02 06:33 | Outpatient (CLI) | payer MEDICAID, SELFPAY ==
--- NOTE | 2024-10-02 07:00 | USCV_ITS ---
Giancarlo Oc Age: 64 Gender: M : 1960 Exam Date: 10/02/2024 07:00 Ordering Phys: Venice Colbert MD Technologist: Janie Salcido Exam Location: [facility] [place] Indication: FU cardiomyopathy BP: / HR: 110 Rhythm: Sinus Technical Quality: Adequate MEASUREMENTS (Male / Female) Normal Values 2D ECHO LV Diastolic Diameter PLAX 4.8 cm 4.2 - 5.9 / 3.9 - 5.3 cm IVS Diastolic Thickness 1.0 cm 0.6 - 1.0 / 0.6 - 0.9 cm IVS Systolic Thickness 1.3 cm LVPW Diastolic Thickness 1.4 cm 0.6 - 1.0 / 0.6 - 0.9 cm LVPW Systolic Thickness 1.6 cm LVOT Diameter 2.0 cm LV Ejection Fraction 2D Teich 52.3 % LV Ejection Fraction MOD 4C 31.2 % LV Ejection Fraction MOD 2C 56.2 % LV Ejection Fraction 2C AL 16.2 % LA Diameter 3.7 cm RA Systolic Volume 4C AL 16.6 ml RA Systolic Volume 4C MOD 15.4 ml LA Sys Volume AL 33.6 cm cubed LA Sys Volume Index AL 15.3 cm cubed/m squared Aorta at Sinotubular Diameter 2.7 cm IVC Diameter 1.6 cm M-MODE LA Ao Ratio MM 1.3 AV Cusp Separation MM 1.5 cm DOPPLER AV Peak Velocity 93.0 cm/s LVOT Peak Velocity 102.0 cm/s AV Area Cont Eq vti 3.0 cm squared AV Area Cont Eq pk 3.4 cm squared MV Area PHT 4.2 cm squared Mitral E to A Ratio 0.7 TV Peak Velocity 148.0 cm/s TR Peak Velocity 206.0 cm/s TR Peak Gradient 17.0 mmHg TR Mean Velocity 180.0 cm/s TR Mean Gradient 13.6 mmHg TR Velocity Time Integral 66.0 cm TV Peak E Velocity 61.0 cm/s PV Peak Velocity 92.0 cm/s FINDINGS Left Ventricle Normal LV size with slightly diminished ejection fraction of around 50%, visual.. Hourglass shaped LV cavity.mild left ventricular hypertrophy. Grade I/IV diastolic dysfunction (abnormal relaxation filling pattern), normal to mildly elevated filling pressures. Right Ventricle The right ventricle is normal in size and function. Right Atrium The right atrium is normal in size. Left Atrium The left atrium is normal in size. Mitral Valve No gross abnormalities noted Aortic Valve No gross abnormalities noted Tricuspid Valve Trace tricuspid valve regurgitation. Estimated pulmonary artery peak systolic pressure possibly within normal limits Pulmonic Valve Trace pulmonary valve regurgitation. Pericardium Normal pericardium without effusion. Aorta Normal ascending aorta dimension. IVC The inferior vena cava appears normal. CONCLUSIONS Normal LV size with slightly diminished ejection fraction of around 50%, visual.. Hourglass shaped LV cavity.mild left ventricular hypertrophy. Grade I/IV diastolic dysfunction (abnormal relaxation filling pattern), normal to mildly elevated filling pressures. Trace tricuspid valve regurgitation. Estimated pulmonary artery peak systolic pressure possibly within normal limits. There is no pericardial effusion. There are no intracardiac masses. No similar previous studies are available for comparison Dr Venice Colbert MD [facility] (Electronically Signed) Final Date: 08 October 2024 08:52 S
== END 2024-10-02 06:34 | disposition home or self-care (01) ==
PROVIDERS: PCP Nurse Practitioner Family; Visit Provider Internal Medicine Cardiovascular Disease
DX: I50.30 Unspecified diastolic (congestive) heart failure (principal); R06.09 Other forms of dyspnea
CPT/HCPCS: 93306

== ENCOUNTER → 2025-10-14 11:28 | Outpatient (BNVA) | payer MEDICARE, SELFPAY | PROVIDERS: PCP Family Medicine; Visit Provider Internal Medicine Cardiovascular Disease | DX: I11.0 Hypertensive heart disease with heart failure (principal); I50.20 Unspecified systolic (congestive) heart failure; E11.9 Type 2 diabetes mellitus without complications; E78.5 Hyperlipidemia, unspecified; I25.10 Atherosclerotic heart disease of native coronary artery without angina pectoris; Z87.891 Personal history of nicotine dependence; I25.2 Old myocardial infarction | CPT/HCPCS: 99214 ==